=== PATIENT | female | born 1995 | race Caucasian/White ===

== ENCOUNTER 2022-01-24 03:35 | Emergency (ER) | payer SELFPAY ==
[2022-01-24 06:46] LABS: Basophils % (Auto) 0.6 % (0.0-1.8); Eosinophils # (Auto) 0.1 K/mm3 (0.0-0.4); Eosinophils % (Auto) 0.7 % (0.0-4.3); Hemoglobin 13.7 gm/dl (10.1-14.3); Monocytes # (Auto) 0.6 K/mm3 (0.0-0.8); Monocytes % (Auto) 7.9 % (0.0-7.3)
[2022-01-24 07:00] LABS: Hematocrit 40.9 % (30.3-42.9); Mean Corpuscular HGB Conc 34 % (30-34); Mean Corpuscular Volume 90 fl (79-97); Platelet Count 277 K/mm3 (140-440); Red Blood Count 4.55 M/mm3 (3.65-5.03); Red Cell Distribution Width 13.7 % (13.2-15.2)
[2022-01-24 07:07] LABS: Alanine Aminotransferase 9 units/L (7-56); Albumin 4.8 g/dL (3.9-5); Blood Urea Nitrogen 5 mg/dL (7-17); Calcium 9.3 mg/dL (8.4-10.2); Hemolysis Index 5
[2022-01-24 07:12] LABS: BUN/Creatinine Ratio 10
--- NOTE | 2022-01-24 07:13 | Emergency Department Report ---
ED General Adult HPI - General Chief complaint: Anxiety Stated complaint: ALEJANDRO Time Seen by Provider: 01/24/22 06:33 Source: patient Mode of arrival: Ambulatory Limitations: No Limitations - History of Present Illness Initial comments: This is a pleasant 26-year-old female who presents emergency department chief complaint of shortness of breath that has been ongoing for the past month. She reports she feels as if there is some phlegm in her chest that she is unable to cough up and clear. She denies any known past medical history, current medication use, known allergies to medications or previous surgeries. She denies any concern for . She denies any oral contraceptive use. She reports when she gets the symptoms of feel like she cannot clear the phlegm in her throat she gets very anxious. - Related Data Previous Rx's Medication Instructions Recorded Last Taken Type Fluticasone [Flonase] 1 spray NS QDAY #1 bottle 01/24/22 Unknown Rx Guaifenesin/Pseudoephedrne HCl 1 each PO BID #12 01/24/22 Unknown Rx [Mucinex D ER 600-60 mg Tablet] hydrOXYzine PAMOATE [Vistaril] 25 mg PO Q6HR #30 capsule 01/24/22 Unknown Rx Allergies Allergy/AdvReac Type Severity Reaction Status Date / Time No Known Allergies Allergy Unverified 01/24/22 06:09 ED Review of Systems ROS: Stated complaint: ALEJANDRO Other details as noted in HPI Comment: All other systems reviewed and negative Constitutional: denies: chills, fever Eyes: denies: eye pain, eye discharge, vision change ENT: denies: ear pain, throat pain Respiratory: no symptoms reported, cough, shortness of breath. denies: wheezing Cardiovascular: chest pain. denies: palpitations Endocrine: no symptoms reported Gastrointestinal: denies: abdominal pain, nausea, diarrhea Genitourinary: denies: urgency, dysuria, discharge Musculoskeletal: denies: back pain, joint swelling, arthralgia Skin: denies: rash, lesions Neurological: denies: headache, weakness, paresthesias Psychiatric: denies: anxiety, depression Hematological/Lymphatic: denies: easy bleeding, easy bruising ED Past Medical Hx - Medications Home Medications: Home Medications Medication Instructions Recorded Confirmed Last Taken Type Fluticasone [Flonase] 1 spray NS QDAY #1 bottle 01/24/22 Unknown Rx Guaifenesin/Pseudoephedrne HCl 1 each PO BID #12 01/24/22 Unknown Rx [Mucinex D ER 600-60 mg Tablet] hydrOXYzine PAMOATE [Vistaril] 25 mg PO Q6HR #30 capsule 01/24/22 Unknown Rx ED Physical Exam - General Limitations: No Limitations General appearance: alert, in no apparent distress - Head Head exam: Present: atraumatic, normocephalic - Eye Eye exam: Present: normal appearance - ENT ENT exam: Present: normal exam, normal orophraynx, mucous membranes moist - Neck Neck exam: Present: normal inspection, full ROM. Absent: tenderness, meningismus - Respiratory Respiratory exam: Present: normal lung sounds bilaterally. Absent: respiratory distress, wheezes, rales, rhonchi, stridor - Cardiovascular Cardiovascular Exam: Present: regular rate, normal rhythm, normal heart sounds. Absent: systolic murmur, diastolic murmur, rubs, gallop - GI/Abdominal GI/Abdominal exam: Present: soft, normal bowel sounds. Absent: distended, tenderness, guarding, rebound, rigid - Extremities Exam Extremities exam: Present: normal inspection, full ROM, normal capillary refill. Absent: tenderness, calf tenderness (Negative Homans' sign bilaterally. No posterior calf tenderness. No palpable cords.) - Back Exam Back exam: Present: normal inspection, full ROM. Absent: tenderness, CVA tenderness (R), CVA tenderness (L) - Neurological Exam Neurological exam: Present: alert, oriented X3, normal gait - Psychiatric Psychiatric exam: Present: normal affect, normal mood - Skin Skin exam: Present: warm, dry, intact, normal color. Absent: rash ED Course Vital Signs 01/24/22 03:39 Temperature 98.2 F Pulse Rate 113 H Respiratory 18 Rate Blood Pressure 115/89 O2 Sat by Pulse 97 Oximetry - Reevaluation(s) Reevaluation #1: 01/24/22 07:11 Patient is well-appearing, nontoxic in no acute distress. Cardiac protocol was ordered by the nursing staff and EKG was abnormal with inferior T wave inversions in lead II, III, aVF, V 3 through V6. There is a prolonged QT interval with a QTC of 551. Cardiac protocol including troponins, D-dimer was ordered due to initial tachycardia. Patient is a low risk by Wells criteria. 01/24/22 07:12 ED Medical Decision Making - Lab Data Result diagrams: 01/24/22 06:29 01/24/22 06:29 - EKG Data -: EKG Interpreted by Me EKG shows normal: sinus rhythm Rate: normal - EKG Data When compared to previous EKG there are: previous EKG unavailable Interpretation: nonspecific ST-T wave nguyễn (Normal sinus rhythm with a ventricular rate of 93 bpm, T wave inversions in leads II, III, aVF, V3 through V6, no STEMI. Prolonged QT interval with a QTC of 551. No STEMI.) - Radiology Data Radiology results: report reviewed, image reviewed Ordering Physician: BERNA STRONG MD Date of Service: 01/24/22 Procedure(s): XR chest routine 2V Accession Number(s): [id number] cc: BERNA STRONG MD Fluoro Time In Minutes: CHEST 2 VIEWS INDICATION: CHEST PAIN/ SOB. COMPARISON: None. FINDINGS: Support devices: None. Heart: Within normal limits. Lungs/Pleura: No acute air space or interstitial disease. No significant pleural effusion. IMPRESSION: No acute findings. Signer Name: Chidi Bella MD Signed: 01/24/2022 7:06 AM Workstation Name: [id number] Transcribed By: ES Dictated By: Chidi Bella MD Electronically Authenticated By: Chidi Bella MD Signed Date/Time: 01/24/22705 DD/ 5 TD/TT: cc: JUAN MANUEL TAYLOR CTA CHEST WITH CONTRAST INDICATION / CLINICAL INFORMATION: chest pain, SOB, tachycardia, elevated D- dimer OMNI 350 100 ML. TECHNIQUE: Axial CT images were obtained through the chest after injection of 100 mL Omnipaque 350 IV contrast. 3 plane MIP and/or 3D reconstructions were produced. All CT scans at this location are performed using CT dose reduction for ALARA by means of automated exposure control. COMPARISON: None available. FINDINGS: PULMONARY EMBOLUS: None. THORACIC AORTA: No significant abnormality. HEART: No significant abnormality. CORONARY ARTERY CALCIFICATION: Absent -- None. MEDIASTINUM / JERZY: No significant abnormality. PLEURA: No pleural effusion. No pneumothorax. LUNGS: No acute air space or interstitial disease. ADDITIONAL FINDINGS: None. UPPER ABDOMEN: No acute findings. SKELETAL STRUCTURES: No significant osseous abnormality. IMPRESSION: 1. No CT evidence for pulmonary embolism. 2. No acute findings. Signer Name: Yobani Champagne MD Signed: 01/24/2022 11:03 AM Workstation Name: [id number] Transcribed By: SHERLYN Dictated By: Yobani Champagne MD Electronically Authenticated By: Yobani Champagne MD Signed Date/Time: 01/24/22 1103 - Medical Decision Making Patient presents emerged department chief complaint of shortness of breath, chest pain, mucus in her throat. Exam is consistent with postnasal drip although she was tachycardic and I cannot use the PERC score to rule out a PE. Wells criteria was low but a D-dimer was ordered and elevated. CTA was negative . Cardiac enzymes have been negative. EKG was slightly abnormal but suspect the patient symptoms are secondary to allergic rhinitis with postnasal drip. We will treat the patient with Mucinex, antihistamines and nasal corticosteroids. Recommended follow-up outpatient with primary care doctor return the emerge department any change or worsening symptoms. She verbalized understand the diagnosis, treatment and follow instructions all of her questions were answered. - Differential Diagnosis PE, ACS, postnasal drip Critical care attestation.: If time is entered above; I have spent that time in minutes in the direct care of this critically ill patient, excluding procedure time. ED Disposition Clinical Impression: Allergic rhinitis with postnasal drip, Shortness of breath Disposition: 01 HOME / SELF CARE / HOMELESS Is pt being admited?: No Condition: Stable Instructions: Allergic Rhinitis, Adult, [id number] Prescriptions: Fluticasone [Flonase] 1 spray NS QDAY #1 bottle Guaifenesin/Pseudoephedrne HCl [Mucinex D ER 600-60 mg Tablet] 1 each PO BID #12 hydrOXYzine PAMOATE [Vistaril] 25 mg PO Q6HR #30 capsule Referrals: KEILY HAIDER MD [Primary Care Provider] - 3-5 Days Forms: Work/School Release Form(ED) Time of Disposition: 11:12
[2022-01-24] MEDS ORDERED: IPRATROPIUM/ALBUTEROL SULFATE 3 ML AMPUL.NEB IH SCH (09:00)
[2022-01-24 10:00] LABS: HCG Qualitative,Urine Negative (Negative)
--- NOTE | 2022-01-24 11:08 | Cat Scan Report ---
CTA CHEST WITH CONTRAST INDICATION / CLINICAL INFORMATION: chest pain, SOB, tachycardia, elevated D-dimer OMNI 350 100 ML. TECHNIQUE: Axial CT images were obtained through the chest after injection of 100 mL Omnipaque 350 IV contrast. 3 plane MIP and/or 3D reconstructions were produced. All CT scans at this location are per formed using CT dose reduction for ALARA by means of automated exposure control. COMPARISON: None available. FINDINGS: PULMONARY EMBOLUS: None. THORACIC AORTA: No significant abnormality. HEART: No significant abnormality. CORONARY ARTERY CALCIFICATION: Absent -- None. MEDIASTINUM / JERZY: No significant abnormality. PLEURA: No pleural effusion. No pneumothorax. LUNGS: No acute air space or interstitial disease. ADDITIONAL FINDINGS: None. UPPER ABDOMEN: No acute findings. SKELETAL STRUCTURES: No significant osseous abnormality. IMPRESSION: 1. No CT evidence for pulmonary embolism. 2. No acute findings. Signer Name: Yobani Champagne MD Signed: 01/24/2022 11:03 AM Workstation Name: [id number]
[2022-01-24 11:29] VITALS: BP 104/67
--- NOTE | 2022-01-25 19:17 | Electrocardiograph Report ---
[facility] Test Date: 2022-01-24 Test Time: 03:45:25 Pat Name: KP SEQUEIRA Department: Room: Gender: F Communications Editor: JOHN : 1995 Requested By: BERNA STRONG Order Number: [id number] Reading MD: Nikita Mancera Measurements Intervals [place] Rate: 51 P: 28 MD: 162 QRS: -1 QRSD: 79 T: 10 QT: 429 QTc: 396 Interpretive Statements Sinus rhythm/DAVID LVH ST elev, probable normal early repol pattern No previous ECG available for comparison Electronically Signed On 01-25-2022 19:17:13 EDT by Nikita Mancera
--- NOTE | 2022-01-25 19:18 | Electrocardiograph Report ---
[facility] Test Date: 2022-01-24 Test Time: 05:58:32 Pat Name: KP SEQUEIRA Department: Room: Gender: F Management Internship: JOHN : 1995 Requested By: BERNA STRONG Order Number: [id number] Reading MD: Nikita Mancera Measurements Intervals [place] Rate: 93 P: 76 ID: [id number] QRS: 93 QRSD: 78 T: -73 QT: 442 QTc: 551 Interpretive Statements Sinus rhythm RAD Abnormal T, consider ischemia, diffuse leads Prolonged QT interval Compared to ECG 01/24/2022 03:45:25 T-wave abnormality now present Possible ischemia now present Prolonged QT interval now present ST (T wave) deviation no longer present Electronically Signed On 01-25-2022 19:17:36 EDT by Nikita Mancera
== END 2022-01-24 11:31 | disposition home or self-care (01) ==
LOC: ED 03:35
DX: R09.82 Postnasal drip (principal); R06.02 Shortness of breath
CPT/HCPCS: 36415; 71046; 71275; 80053; 81025; 83735; 84484; 85025; 85379; 93005; 94640; 99284; Q9967